=== PATIENT | male | born 2000 | race Hispanic/Latino ===

== ENCOUNTER 2025-01-23 13:36 | Emergency (ER) | payer OTHER ==
[2025-01-23 13:56] VITALS: PULSE 86; TEMP 98.2; O2SAT 100
--- NOTE | 2025-01-23 14:24 | ERPHSYRPT ---
- History of Present Illness Source: patient Exam Limitations: no limitations Patient Subjective Stated Complaint: Pt had cut off his finger on Friday and had surgery and he was having pain so he took some pain meds and now he is feeling dizzy and having upper left sided chest pain and he thinks that it might be his anxiety Triage Nursing Assessment: Pt was brought to the ER by his , vitals wnl, rates pain as 4/10, pulses normal, skin n/w/d, no difficulty breathing, no cardiac history, right thumb bandaged, doesn't appear to be in any distress Physician History: Patient has pain in his thumb. He had an amputation yesterday. He got re paired. He took some Ultram and some Tylenol and Advil. He says it still painful. He is also out of his Lexapro. He is requesting a few days on that since he is new to the area and does not have a local doctor.I was able to examine the thumb and it looks like they did a really good job on it. The wound looks clean there is no evidence of infection or problems at this time. Allergies/Adverse Reactions: Penicillins Allergy (Verified 01/23/25 13:56) Hx Tetanus, Diphtheria Vaccination/Date Given: Yes Hx Influenza Vaccination/Date Given: No Hx Pneumococcal Vaccination/Date Given: No Travel Risk - International Travel Have you traveled outside of the country in past 3 weeks: No - Emerging Infectious Disease Are you exhibiting symptoms associated with any current EIDs: No - Review of Systems Constitutional: No Symptoms Eyes: No Symptoms Skin: No Symptoms Neurological: No Symptoms All Other Systems: Reviewed and Negative - Past Medical History Pertinent Past Medical History: Yes Psycho-Social History: Anxiety - Past Surgical History Past Surgical History: Yes Gastrointestinal: Cholecystectomy Musculoskeletal: Amputation, Orthopedic Surgery - Social History Smoking Status: Current every day smoker Exposure to second hand smoke: Yes Drug Use: none - Social Determinants of Health Will the patient participate in the screening: Yes Do you worry about a steady place to live?: No Do you have any problems with any of the following?: No known problems In the past 12 months,have you had to go without utilities?: No Transportation Issues: No Has anyone in your support network made you feel unsafe?: No Have you or anyone in your house had to go w/o enough food: No - Nursing Vital Signs Nursing Vital Signs: Initial Vital Signs Temperature 98.2 F 01/23/25 13:42 Pulse Rate 86 01/23/25 13:42 Blood Pressure 134/97 01/23/25 13:42 O2 Sat by Pulse Oximetry 100 01/23/25 13:42 Pain Scale Pain Intensity 4 - Physical Exam General Appearance: no apparent distress Eye Exam: PERRL/EOMI Extremity Exam: other (Healing amputation of his thumb) Neurologic Exam: alert, oriented x 3, cooperative Skin Exam: normal color, warm SpO2: 100 - Course Nursing assessment & vital signs reviewed: Yes - Progress Progress: unchanged Progress Note: Patient was stable throughout stay. He does not wish anything for pain right now. I am going to give him a prescription for some [place] as well as Lexapro. He is to continue with his postoperative instructions and follow-up with his primary care doctor and return if symptoms worsen. 01/23/25 14:20 - Departure Departure Disposition: Home Clinical Impression: Acute postoperative pain of extremity Condition: Stable Critical Care Time: No Referrals: MEDARDO DIGGS MD [ACTIVE STAFF, FAMILY PRACTICE] - Follow up/PCP as directed Additional Instructions: Follow your postoperative instructions Return if symptoms worsen. Pain meds and anxiety meds as directed Prescriptions: Hydrocodone/Acetaminophen [Hydrocodone-Acetamin 5-325 mg] 1 tab PO Q6HPRN PRN #14 tablet MDD 4 PRN Reason: Pain Escitalopram Oxalate 10 mg PO DAILY #30 tablet
[2025-01-23 15:22] VITALS: BP 131/72; RESP 23
== END 2025-01-23 14:53 | disposition home or self-care (01) ==
LOC: ED 13:36
DX: G89.18 Other acute postprocedural pain (principal); Z79.891 Long term (current) use of opiate analgesic; Z79.899 Other long term (current) drug therapy; Z72.0 Tobacco use
CPT/HCPCS: 99284